=== PATIENT | male | born 1995 | race Caucasian/White ===

== ENCOUNTER → 2017-06-14 | Outpatient (CLI) | payer OTHER | LOC: BHSO 13:29 | DX: F41.1 Generalized anxiety disorder (principal) ==

== ENCOUNTER → 2017-07-11 | Outpatient (CLI) | payer OTHER | LOC: BHSO 13:30 | DX: F33.1 Major depressive disorder, recurrent, moderate (principal) ==

== ENCOUNTER → 2017-09-12 | Outpatient (CLI) | payer OTHER | LOC: BHSO 13:31 | DX: F33.0 Major depressive disorder, recurrent, mild (principal) | CPT/HCPCS: G0463 ==